=== PATIENT | male | born 1980 | race Caucasian/White ===

== ENCOUNTER 2020-06-02 18:26 | Emergency (ER) | payer OTHER ==
[2020-06-02 18:43] LABS: HEMOGLOBIN 16.2 gm/dl (14.0-17.5); RED BLOOD COUNT 5.13 M/UL (4.20-5.50); WHITE BLOOD COUNT 8.1 K/UL (4.5-11.0)
[2020-06-02 19:05] LABS: BUN/CREATININE RATIO 19 (0-10)
== END 2020-06-02 23:15 | disposition home or self-care (01) ==
LOC: ER1 18:26
PROVIDERS: Emergency Medicine
DX: R07.9 Chest pain, unspecified (principal); E11.65 Type 2 diabetes mellitus with hyperglycemia; F17.210 Nicotine dependence, cigarettes, uncomplicated; Z79.4 Long term (current) use of insulin
CPT/HCPCS: 71045; 80053; 82550; 82553; 82962; 83874; 84484; 85025; 93005; 96374; 99285